=== PATIENT | female | born 1935 | race Caucasian/White ===

== ENCOUNTER 2018-12-19 17:40 | Inpatient (IN) ==
--- NOTE | 2018-12-19 18:29 | Diag Imaging Result Doc PS360 ---
CT HEAD W/O CONTRAST - 12/19/2018 INDICATION: stroke like symptoms COMPARISON: 01/20/2013 FINDINGS: There are grossly stable cerebral white matter patchy hypodensities compatible with chronic microvascular ischemia. No intracranial mass or hemorrhage. The skull is intact. The sinuses, mastoids, and middle ears are clear. IMPRESSION: No acute disease or change from prior. This exam was performed using automated exposure control, adjustment of mA or kV according to patient size, and/or use of iterative reconstruction technique Electronically signed by Nick Nguyen 12/19/2018 6:26 PM
--- NOTE | 2018-12-19 18:33 | Diag Imaging Result Doc PS360 ---
CHEST-PORTABLE - 12/19/2018 INDICATION: stroke like symptoms COMPARISON: 01/23/2018 FINDINGS: There is a left-sided dual-chamber pacemaker in good position. Stable cardiomegaly and pulmonary vascular congestion. Stable fibrotic opacities in the lung bases. Stable biapical pleural-based scarring. No infiltrates or definite edema. IMPRESSION: Cardiomegaly and pulmonary vascular congestion. Pulmonary scarring. Electronically signed by Nick Nguyen 12/19/2018 6:31 PM
[2018-12-19 18:52] LABS: BASO# 0.02 X1000 (0.0-0.2); BASO% 0.3 % (0.0-0.8); EOS# 0.02 X1000 (0.0-0.7); EOS% 0.3 % (0.0-10.0); HEMATOCRIT 39.3 % (37.0-47.0); HEMOGLOBIN 13.2 g/dL (12.0-16.0); LYMPH% 22.1 % (20.5-51.1); MCH 40.7 PG (27-31); MCHC 33.6 g/dL (33-37); MCV 121.3 FL (81-99); MONO# 0.52 X1000 (0.11-0.59); MONO% 7.7 % (1.7-9.3); MPV 10.3 FL (7.4-10.4); NEUT# 4.73 X1000 (1.4-6.5); NEUT% 69.6 % (42.2-75.2); PLT 205 X1000 (130-400); RBC 3.24 XMIL (4.2-5.4); RDW 17.1 % (11.5-14.5); WBC 6.79 X1000 (4.8-10.8)
[2018-12-19 19:15] LABS: PROTIME 23.1 Seconds (11.0-16.0)
[2018-12-19 19:16] LABS: PTT 48.5 Seconds (22.3-41.8)
[2018-12-19 19:19] LABS: URINE SOURCE CLEAN CATCH
[2018-12-19 19:25] LABS: BILIRUBIN URINE NEGATIVE (NEGATIVE); BLOOD URINE NEGATIVE (NEGATIVE); COLOR YELLOW; GLUCOSE URINE NEGATIVE (NEGATIVE); KETONE URINE TRACE mg/dL (NEGATIVE); LEUKOCYTES URINE NEGATIVE (NEGATIVE); NITRITE URINE NEGATIVE (NEGATIVE); PH URINE 6.5; PROTEIN URINE NEGATIVE (NEGATIVE); SP GRAVITY URINE 1.009; TURBIDITY URINE CLEAR (CLEAR); UROBILINOGEN URINE NORMAL (NORMAL)
[2018-12-19 19:26] LABS: UR EPITHELIAL CELLS <10 /HPF (<10); URINE BACTERIA NEGATIVE /HPF; URINE RBC <10 /HPF (<10); URINE WBC <10 /HPF (<10)
[2018-12-19 19:41] LABS: ALB/GLOB RATIO 1.8; ALBUMIN 4.8 g/dL (3.5-5.0); CALCIUM 9.7 mg/dL (8.8-10.2); CREATININE 0.9 mg/dL (0.5-0.9); TOTAL BILIRUBIN 0.58 mg/dL (0.20-1.00); TOTAL PROTEIN 7.4 g/dL (6.3-8.3)
[2018-12-19 19:42] LABS: UR AMPHETAMINES QUAL NONE DETECTED (NONE DETECT); UR BARBITUATES QUAL NONE DETECTED (NONE DETECT); UR BENZODIAZEPIN QUAL NONE DETECTED (NONE DETECT); UR CANNABINOIDS QUAL NONE DETECTED (NONE DETECT); UR COCAINE QUAL NONE DETECTED (NONE DETECT); UR METHADONE QUAL NONE DETECTED (NONE DETECT); UR OPIATES QUAL NONE DETECTED (NONE DETECT); UR OXYCODONE QUAL NONE DETECTED (NONE DETECT); UR PCP QUAL NONE DETECTED (NONE DETECT)
--- NOTE | 2018-12-19 19:44 | PROVIDER DOCUMENTATION ---
HPI-Neurological Disorder - General Chief Complaint: Stroke-Like Symptoms Stated Complaint: STROKE LIKE SYMPTOMS Time Seen by Provider: 12/19/18 17:51 Source: patient, family (daughter) Allergies/Adverse Reactions: Patient Allergies Allergy/AdvReac Type Severity Reaction Status Date / Time levofloxacin [From Levaquin] Allergy Severe ANAPHYLAXIS Verified 12/19/18 18:51 promethazine HCl * AdvReac Intermediate CONFUSION Verified 12/19/18 18:51 [From Phenergan] Home Medications: Home Medication List Medication Instructions Recorded Confirmed Last Taken Type Lisinopril 5 mg PO DAILY 06/07/12 12/19/18 12/19/18 History Oxybutynin [Ditropan] 5 mg PO DAILY 06/07/12 12/19/18 12/19/18 History ATORVAstatin [Lipitor] 20 mg PO QHS 12/19/18 12/19/18 1 Day Ago History ~12/18/18 Amiodarone [Cordarone] 200 mg PO DAILY 12/19/18 12/19/18 12/19/18 History Hydroxyurea 500 mg PO BID 12/19/18 12/19/18 12/19/18 History Rivaroxaban [Xarelto] 20 mg PO QAM 12/19/18 12/19/18 12/19/18 History - History of Present Illness-Neuro Nature of Presenting Problem: Patient with a h/o Afib, HTN, s/p Pacemaker reports sudden weakness to her left lower extremity and she had to struggle to break a fall. Also reports associated paresthesia to the right side of her body and denies any other symptoms. Daughter states that she had a normal echo 3 weeks ago at her PCP fransisco Santos office Headache Location: reports: other (weakness RLL) Onset/Duration: reports: 4-6 hours ago Timing: reports: improving Context: reports: none Character of Altered Mental Status: reports: N/A Character of Deficits: reports: new weakness, altered sensation New weakness or altered sensation location:: reports: none Cognitive Baseline: alert, oriented x3 Gait Baseline: walks only with assistance Associated Symptoms: reports: weakness Similar Symptoms Previously?: No Recently seen or treated by another doctor?: No Review of Systems - Adult - REVIEW OF SYSTEMS - ADULT Constitutional: reports: no symptoms reported Eyes: reports: no symptoms reported Ears, Nose, Mouth & Throat: reports: no symptoms reported Cardiovascular: reports: no symptoms reported Respiratory: reports: no symptoms reported Gastrointestinal: reports: no symptoms reported Genitourinary: reports: no symptoms reported Musculoskeletal: reports: no symptoms reported Integumentary: reports: no symptoms reported Neurological: reports: see HPI Psychiatric: reports: no symptoms reported Endocrine: reports: no symptoms reported Hematologic/Lymphatic: reports: no symptoms reported Allergic/Immunologic: reports: no symptoms reported Past History - Adult - PAST MEDICAL HISTORY-ADULT Review of Records: reports: Nursing Assessment Review, Medications Reviewed, Social history reviewed & non-contributory. Major Childhood Illnesses: reports: denies history Cardiovascular: reports: CAD, HTN Respiratory: reports: denies history Gastrointestinal: reports: denies history Obstetrical/Gynecological: reports: denies history Genitourinary: reports: denies history Musculoskeletal: reports: denies history Neurological: reports: denies history Psychiatric: reports: denies history Endocrine/Immune: reports: Diabetes Other Conditions: reports: denies history - PRIOR SURGERIES/PROCEDURES Surgical/Procedure History: reports: recent surgery - PRIOR HOSPITALIZATIONS Prior Hospitalizations: reports: for similar symptoms - IMMUNIZATION STATUS Childhood Immunizations: See Nurse Assessment Flu Vaccine: See Nurse Assessment - FAMILY HISTORY Family History: reviewed, not pertinent - SOCIAL HISTORY Smoking: denies Substance Use: none/never Alcohol Use Frequency: never Physical Exam- Neurological - Physical Exam-Neuro Initial Vital Signs Reviewed: Yes General Appearance: appears well, alert, no apparent distress Eye Exam: bilateral eye: PERRL, EOMI HENMT: normocephalic/atraumatic Head Injury: no evidence of injury Neck: non-tender, full range of motion, supple Respiratory: chest non-tender, lungs clear, normal breath sounds Cardiovascular: no edema, no JVD Abdominal Exam: non tender, soft Extremity: no pedal edema, no calf tenderness campaign assistant Exam: PERRL Motor/Sensory: weak motor strength LLE (mild) Neurologic: campaign assistant II-XII nml as tested Integumentary: normal color Psych/Mental Status: oriented x 3 - Glascow Coma Scale Best Eye Response: (4) open spontaneously Best Verbal Response: (5) oriented Best Motor Response: (6) obeys commands Progress - PLAN OF CARE/RESULTS Progress/Plan/Lab Results: Vital Signs - 8 hr 12/19/18 17:43 Temperature 97.8 F Pulse Rate 60 Respiratory Rate 18 Blood Pressure 164/72 O2 Sat by Pulse Oximetry 98 Laboratory Results - last 24 hr 12/19/18 12/19/18 12/19/18 18:35 18:35 18:35 WBC 6.79 RBC 3.24 L Hgb 13.2 Hct 39.3 MCV 121.3 H MCH 40.7 H MCHC 33.6 RDW Std Deviation 17.1 H Plt Count 205 MPV 10.3 Immature Gran % (Auto) 0.0 Neut % (Auto) 69.6 Lymph % (Auto) 22.1 [place] % (Auto) 7.7 Eos % (Auto) 0.3 Baso % (Auto) 0.3 Immature Gran # (Auto) 0.00 Neut # (Auto) 4.73 Lymph # (Auto) 1.50 [place] # (Auto) 0.52 Eos # (Auto) 0.02 Baso # (Auto) 0.02 PT 23.1 H INR 2.00 PTT (Actin FS) 48.5 H Sodium 139 Potassium 4.0 Chloride 98 Carbon Dioxide 28 Anion Gap 13 BUN 16 Creatinine 0.9 Estimated GFR/1.73 m2 60 BUN/Creatinine Ratio 18 Glucose 84 Calculated Osmolality 278 Calcium 9.7 Total Bilirubin 0.58 AST 26 ALT 20 Alkaline Phosphatase 88 Troponin T Total Protein 7.4 Albumin 4.8 Globulin 2.6 Albumin/Globulin Ratio 1.8 Urine Source Urine Color Urine Turbidity Urine pH Ur Specific [place] Urine Protein Ur Glucose (Stick) Ur Ketones (Stick) Urine Blood Urine Nitrite Urine Bilirubin Urobilinogen Dipstick Urine Leukocytes Urine WBC (Auto) Urine RBC (Auto) U Epithel Cells (Auto) Urine Bacteria (Auto) Urine Opiates Screen Ur Oxycodone Screen Ur Methadone, Qual Ur Barbiturates Screen Ur Phencyclidine Scrn Ur Amphetamines Screen U Benzodiazepines Scrn Urine Cocaine Screen U Cannabinoids Screen 12/19/18 12/19/18 12/19/18 18:35 19:00 19:00 WBC RBC Hgb Hct MCV MCH MCHC RDW Std Deviation Plt Count MPV Immature Gran % (Auto) Neut % (Auto) Lymph % (Auto) [place] % (Auto) Eos % (Auto) Baso % (Auto) Immature Gran # (Auto) Neut # (Auto) Lymph # (Auto) [place] # (Auto) Eos # (Auto) Baso # (Auto) PT INR PTT (Actin FS) Sodium Potassium Chloride Carbon Dioxide Anion Gap BUN Creatinine Estimated GFR/1.73 m2 BUN/Creatinine Ratio Glucose Calculated Osmolality Calcium Total Bilirubin AST ALT Alkaline Phosphatase Troponin T < 0.010 Total Protein Albumin Globulin Albumin/Globulin Ratio Urine Source CLEAN CATCH Urine Color YELLOW Urine Turbidity CLEAR Urine pH 6.5 Ur Specific [place] 1.009 Urine Protein NEGATIVE Ur Glucose (Stick) NEGATIVE Ur Ketones (Stick) TRACE A Urine Blood NEGATIVE Urine Nitrite NEGATIVE Urine Bilirubin NEGATIVE Urobilinogen Dipstick NORMAL Urine Leukocytes NEGATIVE Urine WBC (Auto) <10 Urine RBC (Auto) <10 U Epithel Cells (Auto) <10 Urine Bacteria (Auto) NEGATIVE Urine Opiates Screen NONE DETECTED Ur Oxycodone Screen NONE DETECTED Ur Methadone, Qual NONE DETECTED Ur Barbiturates Screen NONE DETECTED Ur Phencyclidine Scrn NONE DETECTED Ur Amphetamines Screen NONE DETECTED U Benzodiazepines Scrn NONE DETECTED Urine Cocaine Screen NONE DETECTED U Cannabinoids Screen NONE DETECTED Orders Category Date Time Status Cardiac Monitoring DIRECTED Care 12/19/18 18:00 Active Finger Stick Blood Sugar (ED) DIRECTED Care 12/19/18 18:00 Active Misc. NRSG Communication Order DIRECTED Care 12/19/18 18:00 Active Saline Loc NOW Care 12/19/18 18:00 Active CHEST-PORTABLE [RAD] Stat Exams 12/19/18 18:[address] HEAD W/O CONTRAST [CT] Stat Exams 12/19/18 18:00 Completed CBC WITH ELECTRONIC DIFF [HEME] Stat Lab 12/19/18 18:35 Completed COMPREHENSIVE METABOLIC PANEL [CHEM] Stat Lab 12/19/18 18:35 Completed PROTIME WITH INR [COAG] Stat Lab 12/19/18 18:35 Completed PTT [COAG] Stat Lab 12/19/18 18:35 Completed TROPONIN T Stat Lab 12/19/18 18:35 Completed URINALYSIS W/POSS RFLX CULT [URINALYSIS] Stat Lab 12/19/18 19:00 Completed URINE DRUG SCREEN Stat Lab 12/19/18 19:00 Completed EKG [EKG] Stat Ther 12/19/18 18:00 Ordered Result Diagrams: 12/19/18 18:35 12/19/18 18:35 - REASSESSMENT Reassessment #1 Time Reassessed: 07:55 Status: improving (Patient no longer has right sided paresthesia, initial lip numbness has resolved. CT head - no acute but chronic microvascular changes. family okay with admission which was accepted by Dr Dennison) - XRAY 1 XRAY Study: Chest ( CHEST-PORTABLE - 12/19/2018 INDICATION: stroke like symptoms COMPARISON: 01/23/2018 FINDINGS: There is a left-sided dual-chamber pacemaker in good position. Stable cardiomegaly and pulmonary vascular congestion. Stable fibrotic opacities in the lung bases. Stable biapical pleural-based scarring. No infiltrates or definite edema. IMPRESSION: Cardiomegaly and pulmonary vascular congestion. Pulmonary scarring. Electronically signed by Nick Nguyen 12/19/2018 6:31 PM) - CT/MRI 1 CT Study: Head ( CT HEAD W/O CONTRAST - 12/19/2018 INDICATION: stroke like symptoms COMPARISON: 01/20/2013 FINDINGS: There are grossly stable cerebral white matter patchy hypodensities compatible with chronic microvascular ischemia. No intracranial mass or hemorrhage. The skull is intact. The sinuses, mastoids, and middle ears are clear. IMPRESSION: No acute disease or change from prior. This exam was performed using automated exposure control, adjustment of mA or kV according to patient size, and/or use of iterative reconstruction technique Electronically signed by Nick Nguyen 12/19/2018 6:26 PM) - CONSULTS/PCP/HOSPITALIST Notification #1 *Consult/PCP/Hospitalist*: Juma Time Discussed: 20:09 Consult Disposition: Admit (was accepted by Dr Dennison) Departure - Departure Date of Disposition Decision: 12/19/18 Time of Disposition Decision: 20:08 DIAGNOSIS: TIA (transient ischemic attack) Disposition: ADMITTED INPATIENT 09 Certified Medical Emergency: Emergent Condition: Fair Referrals and Follow-Ups: Jasiel Brown MD [Primary Care Provider] - - Critical Care Note This patient required my direct & personal management of CC.: No Attestation - Physician/ SIL Attestation Patient care was provided by Advanced Practice Provider:: No The physician spent face to face time with patient:: Yes Advanced Practice Provider documentation review:: Supervising physician onsite and consulted in the evaluation and care of this patient. The physician did have a face to face encounter with the patient.
--- NOTE | 2018-12-19 20:38 | EKG Report ---
Test Performed on : 12/19/2018 6:58:04 PM Test Reason : Stroke like symptoms Blood Pressure : / mmHG Vent. Rate : 060 BPM Atrial Rate : 061 BPM P-R Int : 234 ms QRS Dur : 094 ms QT Int : 454 ms P-R-T Axes : 000 055 013 degrees QTc Int : 454 ms Atrial-paced rhythm with prolonged AV conduction Abnormal ECG When compared with ECG of 21-JUL-2014 13:49, Electronic atrial pacemaker has replaced Sinus rhythm. Unconfirmed Result
[2018-12-19] MEDS ORDERED: NS 1,000 ML IV SCH (22:00)
[2018-12-19 23:05] LABS: HEMOGLOBIN A1C 5.1 % (4.8-6.0)
[2018-12-20] MEDS ORDERED: LASIX IV ONE (05:29)
[2018-12-20] MEDS ORDERED: NS 1,000 ML IV SCH (05:29)
[2018-12-20 05:48] LABS: CHOLESTEROL 124 mg/dL (0-200); HDL 74 mg/dL (45-65); LDL 43 mg/dL; TRIGLYCERIDES 37 mg/dL (35-135); VLDL 7 mg/dL
[2018-12-20] MEDS: HUMULIN R SUBQ SCH ×4 (06:08→20:18)
--- NOTE | 2018-12-20 06:13 | HISTORY AND PHYSICAL ---
CHIEF COMPLAINT: Right lower extremity weakness for less than 1 day. HISTORY OF PRESENT ILLNESS: Ms. Chavez is an 83-year-old female, who has a history of previous CVA with which left her with some right lower extremity deficit. She also has a history of atrial fibrillation, hypertension and has had a pacemaker implanted. She presented to the hospital because of right lower extremity weakness for less than one day. This is associated with some dizziness. No headaches. No loss of consciousness or slurred speech. No visual abnormalities. The patient presented to the ER, where she did have a CT scan of the brain done. This did not reveal any acute lesions. The patient has now been admitted to the floor now for further management. PAST MEDICAL HISTORY: 1. Atrial fibrillation. 2. Coronary artery disease. 3. History of previous CVA as well as hypertension. PAST SURGICAL HISTORY: She has had a pacemaker implantation as well as a PTCA with 1 stent placed in 2014. She has also had appendectomy. SOCIAL HISTORY: No history of cigarette smoking. No drug use. She drinks alcohol occasionally. ALLERGIES: She is allergic to Levaquin as well as promethazine. FAMILY HISTORY: Positive for diabetes. MEDICATIONS: Medications include the followin. Lisinopril 5 mg p.o. once a day. 2. Oxybutynin 5 mg p.o. daily. 3. Atorvastatin 10 mg p.o. at bedtime. 4. Amiodarone 20 mg p.o. daily. 5. Hydroxy urea 500 mg p.o. twice a day. 6. Xarelto 20 mg p.o. once a day. REVIEW OF SYSTEMS: Constitutional: No fever. INTERVENTIONAL PHYSICIAN: No headaches. Eyes: No blurred vision. ENT: She has some hearing loss. Cardiovascular: No chest pain. Respiratory: No cough. GI: No nausea, vomiting, diarrhea, or abdominal pain. : No dysuria. Musculoskeletal: No joint pain. Dermatology: No skin lesions. Hematology: Patient is on anticoagulation of Xarelto. Endocrinology: No diabetes or thyroid disease. Psychiatric: No anxiety or depression. PHYSICAL EXAMINATION: VITAL SIGNS: Temperature 97.6 degrees, pulse 59, respiratory 16, blood pressure 174/64, and oxygen saturation is 98%. HEENT: She is atraumatic, normocephalic. She is anicteric. Extraocular movements intact. No oral lesions noted. No facial droop noted. NECK: No lymphadenopathy or thyromegaly. CARDIOVASCULAR: S1, S2. RESPIRATORY: There is evidence of good air entry bilaterally. ABDOMEN: Soft and nontender. No masses felt. EXTREMITIES: No evidence of significant edema. CENTRAL NERVOUS SYSTEM: The patient is awake, alert, and well oriented. She does have strength in the right upper as well as lower extremity 4 to 5/5 while on the left upper and lower extremities about 5/5. LABORATORY DATA: WBC 6.79, hematocrit 39.3 with a platelet count of 205,000. INR is 2. Sodium 139, potassium 4.0, chloride 98, bicarb 28, BUN 6, and creatinine 0.9. UA shows trace ketones. Urine drug screen is negative. CT scan of the brain unremarkable for any acute lesion. EKG shows evidence of paced rhythm. X-ray of chest shows cardiomegaly with pulmonary vascular congestion. ASSESSMENT AND PLAN: 1. Probable TIA/history of CVA. We will maintain patient on anti-platelet agent. Continue statin. Place on telemetry. Maintain her on intravenous fluids. Check lipid panel as well as hemoglobin A1c level. Recommend PT, OT, speech therapy as well as swallow evaluation. Recommend stroke education. Obtain an MRI as well as an MRA of the brain. 2D echo of the heart. Carotid Doppler study. 2. Atrial fibrillation. Continue amiodarone as well as well as Rivaroxaban. 3. Coronary artery disease/history of PTCA. Continue antiplatelet agent as well as statin. The patient is asymptomatic at this time. 4. Hypertension. Allow for permissive hypertension. 5. Cardiomegaly with pulmonary vascular congestion. Check proBNP level. Follow up on 2D echo of the heart. We will give a dose of Lasix. 6. Deep vein thrombosis prophylaxis. The patient is on Xarelto. 7. Gastrointestinal prophylaxis. Proton pump inhibitor. cc: Nate Arenas MD
[2018-12-20] MEDS: PRILOSEC PO SCH (08:56)
[2018-12-20] MEDS: XARELTO PO SCH (08:56)
[2018-12-20] MEDS: DITROPAN PO SCH (08:57)
[2018-12-20] MEDS: HYDREA PO SCH ×2 (08:57→20:15)
[2018-12-20] MEDS: CORDARONE PO SCH (08:57)
[2018-12-20] MEDS ORDERED: PRINIVIL PO SCH (09:00)
[2018-12-20] MEDS: ASPIRIN PO SCH (11:25)
--- NOTE | 2018-12-20 13:57 | PROGRESS NOTE ---
DATE: 12/20/2018 SUBJECTIVE: This morning Ms. Chavez refers to be doing well. Normal speech. Still has some weakness on the right side. OBJECTIVE: Vital Signs: Blood pressure is 145/66, pulse rate 60, respirations 15, and temperature 97.6. General: Ms. Chavez is an 83-year-old female. She is in bed. No distress. HEENT: Mucosa is pink and moist. Anicteric. Acyanotic. Neck: Supple. No JVD. Chest: Clear to auscultation. No crepitations. No rhonchi. Cardiovascular: Regular rate and rhythm. There is a pacemaker pocket on the left anterior chest wall. Abdomen: Soft and nontender. Bowel sounds are present. Extremities: No pedal edema. Distal pulses are present. CLAY MIXER: The patient is awake, alert, oriented times 4, and has mild weakness on the right side. Power is about 4+ on the right side, both upper and lower extremities, and 5/5 in the left upper and lower extremities. The patient also has positive Babinski on the right lower extremity. LABORATORY DATA: Reviewed. The patient has an MCV of 121. Normal TSH. We will check her B12 and folate levels. A CAT scan which was done yesterday showed no acute disease. ASSESSMENT: 1. Acute onset of right side weakness, most likely from a cerebrovascular accident. This is about the third time Ms. Chavez has had right side weakness. At this time she was suppose to be on 20 mg of Xarelto but this was changed to 10 mg just about a month ago. A CAT scan that was done on presentation was unremarkable. Unfortunately, Ms. Chavez cannot do an MRI because of her pacemaker so we are going to go ahead and get a CT of the neck and the brain for follow up. 2. History of atrial fibrillation currently rate controlled. The patient is on amiodarone. 3. History of coronary artery disease, status post stent placement. The patient is currently on a statin and anticoagulation. 4. Cardiomegaly with pulmonary vascular congestion on x-ray. Echo is pending to have a better idea about the ejection fraction. 5. Macrocytosis. We will do a B12 and folate. TSH is normal. 6. Status post pacemaker for cardiac arrhythmias. The patient follows up with Dr. Alvarado. 7. Xarelto anticoagulation. As I said, Ms. Chavez's 20 mg Xarelto was cut in half to 10 mg about a month ago. I am not quite sure the reason behind this. We will get records from her coffee maker and go from there. cc: Calos Madrid MD
--- NOTE | 2018-12-20 14:59 | Diag Imaging Result Doc PS360 ---
CT HEAD WWO NECK W/CONTRAST - 12/20/2018 INDICATION: stroke unable to do MRI COMPARISON: 12/19/2018 FINDINGS: Head: There is stable patchy, mild cerebral white matter chronic microvascular ischemia. No intracranial mass or hemorrhage. No abnormal contrast enhancement. NECK: The major vessels of the neck are patent. No significant arterial disease. Mucosal surfaces are clear. No adenopathy. Soft tissues of the neck are normal. The cervical spine is intact. No significant central canal stenosis. IMPRESSION: No acute disease or change from prior. This exam was performed using automated exposure control, adjustment of mA or kV according to patient size, and/or use of iterative reconstruction technique Electronically signed by Nick Nguyen 12/20/2018 2:57 PM
--- NOTE | 2018-12-20 16:47 | CONSULTATION ---
DATE OF CONSULTATION: 12/20/2018 Ms. Chavez is 83 years old and there is question of stroke. She reports sudden onset yesterday of sense of weakness and numbness in the right limbs associated with dizziness. There was no vision disturbance, significant headache, altered awareness. She did not fall. No one commented on facial asymmetry. There was no slurring of speech. She did not have trouble understanding what was said to her. She was improved within an hour and is much improved today but still not quite back to baseline, by her report. She reports similar episode occurring twice in the past. First time 4 years ago she had weakness in the right limbs lasting for about 20 minutes resolving completely. There may have been dizziness then. She does not recall headache. Speech may have been difficult, there is report that she left a phone message and could not make herself understood on that phone message. Second episode occurred about 3 and a half years ago and was again temporary weakness in the right limbs resolving in less than an hour without associated features of language disturbance, vision disturbance, headache, or altered awareness. She has risk factors for cerebrovascular ischemic problems including hypertension, atrial fibrillation, possibly dyslipidemia. She reports she has a blood condition requiring periodic treatment in the hematology office. She does not know the nature of this and does not know if this condition would be a stroke risk factor. I note her medicine list includes hydroxyurea. Lab work this admission shows platelet count 205,000, MCV 121.3. PT is 23.1 seconds with INR 2.00 and PTT 48.5. Chemistry is unremarkable. Total cholesterol is 124 with HDL 74. Urine drug screen was all negative. Noncontrast CT of the head showed old changes typical for age but nothing definitely focal or acute and no definite acute or chronic left hemisphere lesion to account for her episodes of right- sided weakness. On my view, there is typical periventricular white matter lucency a little more prominent adjacent to the left frontal horn of the lateral ventricle than on the right. She has been afebrile. Heart rate has been stable 59-65 with pacemaker. Initial systolic blood pressures ranged 160s-190s and recent systolic blood pressures have ranged 130s- 150s. On exam Ms. Chavez is awake, alert, attentive and appropriate. Speech is not dysarthric. Language function is intact on careful bedside testing. Recent and remote memory good. Head and neck are unremarkable. Visual dejesus are full tested carefully by confrontational finger counting. Extraocular movements are full. Facial motility appears symmetric. Gag is intact. Tongue is midline. She can hear. Shoulder shrug is equal. Strength is normal in the arms and left leg. I can overcome the right leg grading 4+/five at the iliopsoas. Strength is good distally in the right leg. Limb tone is symmetric on the right and left. She did well on finger- to-nose testing bilaterally. She reports good sensation symmetrically over the limbs. Proprioception is good at the great toe MTP joint bilaterally. Reflexes are 2+ at the ankles, 2+ at the knees, 1+ at the wrists symmetrically. Plantar response is silent bilaterally. Gait is minimally antalgic and otherwise unremarkable. There was not clear hemiparetic pattern to her gait. Romberg is absent. She did well on heel-to-toe tandem walking without assistance. IMPRESSION: Only clinical finding is minimal proximal right leg weakness. 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 With her risk factors, acute ischemic stroke would seem more likely than other explanations. Negative CT is reassuring. Unfortunately, MRI is not an option and we can plan to repeat CT when practical looking for evidence of new left hemisphere lesion. She will need to continue aggressive management of her lipids and blood sugar. We can be cautious with blood pressure management in the near term and expect to resume managing that aggressively soon. If her blood disorder might be a risk factor for cerebrovascular ischemic problems, management of that problem might be adjusted, but I do not see anything remarkable other than high MCV in the lab work this admission. Thanks for asking Neurology to see Ms. Chavez. cc: MD Calos Dozier III, MD MTDD
--- NOTE | 2018-12-20 18:25 | ECHO REPORT ---
ORDER DATE: 12/20/2018 INTERPRETING PHYSICIAN: Dr. Chandler CLINICAL INDICATIONS: TIA. M-MODE MEASUREMENTS: Left ventricle end diastole: 3.7 cm. Left ventricle end systole: 2.2 cm. Posterior wall: 0.8 cm. Interventricular septum: 0.8 cm. Left atrium: 2.9 cm. Aortic diameter: 2.7 cm. SUMMARY OF 2-DIMENSIONAL IMAGIN. Left ventricular function is normal. Ejection fraction estimated at 70% to 75%. There is no wall motion abnormality noted. Small pericardial effusion appears to be present. 2. Right ventricle is normal. 3. The aortic valve looks normal. Color flow mapping unremarkable. The aortic valve has three cusps. They open normally. 4. The tricuspid valve shows mild degree of regurgitation. 5. Pulmonary pressure is estimated at 26 mmHg. Pulmonic valve is unremarkable. 6. The mitral valve looks normal. Color flow mapping unremarkable. 7. Pulsed wave Doppler of mitral inflow shows mild reversal of the E and the A ratio. Ratio is 0.8. 8. Tissue Doppler of septal and lateral mitral annulus averages 6 cm. 9. There is no diastolic dysfunction. 10.The left atrium is normal. CONCLUSIONS: In summary, this study shows 1. Normal/hyperdynamic left ventricle with ejection fraction of 70% to 75%. 2. Small to moderate sized pericardial effusion. This is not causing any pericardial tamponade. 3. No diastolic dysfunction. 4. Pulmonary systolic pressure is estimated at 26 mmHg. 5. Unremarkable aortic valve. Clinical correlation is recommended. cc: MD Nate Stevenson MD Raphael K. Quansah, MD
[2018-12-20] MEDS ORDERED: LIPITOR PO SCH ×2 (21:00)
[2018-12-21 06:18] LABS: IRON SATURATION 26 %; TIBC 244 ug/dL; TOTAL IRON 63 ug/dL (49-151); UNBOUND IRON 181 ug/dL (112-346)
[2018-12-21] MEDS: PRILOSEC PO SCH (06:24)
[2018-12-21] MEDS: HUMULIN R SUBQ SCH (06:25)
[2018-12-21 06:33] LABS: FERRITIN 322 ng/mL (13-150)
[2018-12-21 08:25] VITALS: BP 123/57
[2018-12-21] MEDS: ASPIRIN PO SCH (09:33)
[2018-12-21] MEDS: HYDREA PO SCH (09:33)
[2018-12-21] MEDS: XARELTO PO SCH (09:33)
[2018-12-21] MEDS: DITROPAN PO SCH (09:33)
[2018-12-21] MEDS: CORDARONE PO SCH (09:34)
--- NOTE | 2018-12-21 15:19 | Carotid Study ---
DATE: 12/20/2018 INDICATION: TIA. EQUIPMENT: [employer] Vivid E9 ultrasound system a 9 L-D transducer. FINDINGS: Complete diagram of ultrasound images can be seen scanned in patient's medical record. The peak systolic velocity on the right side is located in the distal internal carotid artery and noted to be 82. The peak systolic velocity noted on the left side is noted to be in the mid internal carotid artery and is noted to be 88. The calculated internal common ratio on the right is 1.19, left 1.12. Calculated stenosis on the right 0 to 39 percent, left 0 to 39 percent. There appears to be some atherosclerosis, but at this time, it does not produce a hemodynamically significant flow-limiting stenosis. Both vertebral arteries were antegrade flow. INTERPRETATION: By strict velocity criteria, no hemodynamically significant flow-limiting stenosis. cc: MD Nate Terrell MD Raphael K. Quansah, MD
--- NOTE | 2018-12-21 15:47 | DISCHARGE SUMMARY ---
ADMISSION DATE: 12/19/2018 DISCHARGE DATE: 12/21/2018 DISPOSITION: Home. FOLLOW-UP: Will be with Dr. Jasiel Brown. CONSULTATION DURING THIS ADMISSION: Neurology was consulted. Patient was seen by Dr. Varghese. INVASIVE PROCEDURES DONE DURING THIS ADMISSION: None. IMAGING STUDIES OF SIGNIFICANCE: A chest x-ray done on admission at 12/19/2018 showed cardiomegaly and pulmonary vascular congestion. A CT scan of the head showed no acute disease or change from prior. An echocardiogram shows normal left ventricle of 70 to 75%. Small to moderate size pericardial effusion not causing any tamponade. There is no diastolic dysfunction. A CT scan of the head and neck showed no acute disease. Major vessels in the neck were patent. ADMISSION DIAGNOSES: 1. Probable TIA. 2. Atrial fibrillation. 3. Hypertension. 4. Cardiomegaly. DIAGNOSIS AT THE TIME OF DISCHARGE: 1. 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 Initial CAT scan and a repeat CTA of the neck and the head both were unremarkable. Ms. Chavez unfortunately could not get an MRI because of a pacemaker. 2. History of atrial fibrillation currently rate controlled. The patient is on amiodarone. 3. History of coronary artery disease status post stents. The patient was currently asymptomatic. She is on statin and anticoagulant. 4. Cardiomegaly with mild pulmonary vascular congestion, consistent with heart failure with preserved ejection fraction. 5. Microcytosis. 6. Status post pacemaker placement. 7. Anticoagulation with Xarelto. DISCHARGE MEDICATIONS: 1. Oxybutynin. 2. Hydroxyzine 500 b.i.d. 3. Rivaroxaban 20 mg p.o. daily. 4. Amiodarone 200 mg p.o. daily. 5. Atorvastatin 40 mg p.o. at bedtime. 6. Lisinopril 5 mg p.o. to be started on Sunday after discussions with primary care doctor. Physical Therapy notes from yesterday showed Ms. Chavez did 100 feet with front wheel walker, contact guard assist. PRESENTING COMPLAINT: Right extremity weakness for a day. HISTORY OF PRESENTING COMPLAINT: Ms. Chavez is an 83-year-old elderly female with a history of atrial fibrillation, coronary artery disease, and previous CVA, normally follows up with Dr. Alvarado. According to her, her Xarelto was actually dropped from 20 to 10, unsure the reason, for about a month. On the day of presentation, she woke up and she started feeling some weakness on the right side. She came to the emergency department and was admitted for TIA versus stroke. Patient CT scan was unremarkable. HOSPITAL COURSE: Ms. Chavez was admitted to the medical floor. She was started on her medications, except for the antihypertensive medications since permissive hypertension was being observed. She was evaluated also by neurology. During the hospital course, Ms. Chavez continues to improve. The weakness on the right extremity was just minimum. She was evaluated by Physical Therapy. She seems to be doing well. We think she is stable for discharge. She has been advised to withhold her antihypertensive at least for a total of 5 days and to restart them on December 25 after discussion with her primary care doctor. Ms. Chavez is in stable condition for discharge. TIME SPENT: The time spent for discharge is 38 minutes. cc: MD Jasiel Solano MD Eston G. Norwood III, MD
== END 2018-12-21 11:01 | disposition home or self-care (01) | DRG 65 ==
LOC: ED 17:40 → SUATTDRO 22:09 → 1N 22:09
PROVIDERS: ADMIT Internal Medicine; ATTEND Internal Medicine